=== PATIENT | male | born 1955 | race Caucasian/White ===

== ENCOUNTER 2021-03-04 07:50 | Day surgery (SDC) | payer OTHER, SELFPAY ==
[~2021-03-04] VITALS: Ht 188 cm; Wt 92.5 kg
[2021-03-04] MEDS ORDERED: KETOROLAC 60 MG/2 ML VIAL IM ONE (11:15)
[2021-03-04] MEDS ORDERED: LIDOCAINE 2% 100 MG/5 ML UJET TP ONE ×2 (11:20→11:25)
[2021-03-04] MEDS ORDERED: KETOROLAC 30 MG/ML VIAL IVP ONE (11:25)
== END 2021-03-04 12:12 | disposition home or self-care (01) ==
LOC: MDS 07:50 → MMU 07:51 → MDS 12:12
PROVIDERS: ATTEND Internal Medicine Gastroenterology
DX: Z12.11 Encounter for screening for malignant neoplasm of colon (principal); K57.30 Diverticulosis of large intestine without perforation or abscess without bleeding; I11.0 Hypertensive heart disease with heart failure; I50.9 Heart failure, unspecified; Z79.82 Long term (current) use of aspirin; Z79.899 Other long term (current) drug therapy
CPT/HCPCS: 45378; 87426; J1885